=== PATIENT | male | born 1980 | race Caucasian/White ===

== ENCOUNTER 2023-04-19 16:14 | Inpatient (IN) | payer OTHER, SELFPAY ==
--- NOTE | ~2023-04-19 | CT_ITS ---
EXAMINATION: CT HEAD WITHOUT CONTRAST CLINICAL INFORMATION: Dizziness. Vertigo. COMPARISON: CT head from 09/01/2010. TECHNIQUE: Contiguous axial imaging was performed from the skull base to vertex without intravenous administration of contrast. This CT examination was performed using dose optimization techniques as appropriate, variously including the following: *Automated exposure control. *Adjustment of mA and/or kV according to patient size (this includes techniques or standardized protocols for targeted exams where dose is matched to indication/reason for exam; i.e. extremities or head). *Use of iterative reconstruction technique. DLP: 731 mGy-cm FINDINGS: There is no evidence of acute intracranial hemorrhage or edematous territorial infarction. There is a small lacunar infarct within the anterior left thalamus that is new compared to 2009 but otherwise age indeterminate. No additional loss of loya-white matter differentiation. There is no abnormal attenuation within the brain parenchyma. The ventricles are normal in morphology and size. No evidence for obstructive hydrocephalus. No abnormal mass effect or midline shift. No extra-axial fluid collections. No acute soft tissue or osseous abnormalities. Mild mucosal thickening of the paranasal sinuses. The mastoid air cells and middle ear cavities are clear. Mild degenerative arthropathy of the temporomandibular joints. CT/CT head/brain wo IV con IMPRESSION: 1. No evidence of acute intracranial hemorrhage or edematous territorial infarction. 2. There is a small lacunar infarct within the anterior left thalamus that is new compared to 2010 but otherwise age indeterminate.
[2023-04-19 16:25] VITALS: BP 140/80; BP 140/99; PULSE 121; PULSE 81; RESP 16; TEMP 36.8; O2SAT 98; BMI 22.3
[2023-04-19 17:01] LABS: Appearance Urine Clear; Color Urine Dark Yellow; Glucose Urine UA Negative (Negative); Leukocyte Esterase Urine Negative (Negative); Nitrite Urine Negative (Negative); PH 5.5 (5.0-9.0); Specific Gravity - Urine >= 1.030 (1.005-1.025); UMIC TRIGGER UACC YES; Urine Blood Negative (Negative); Urine Ketones 40 mg/dL (Negative); Urine Protein 100 (2+) mg/dL (Neg-Trace)
[2023-04-19 17:03] LABS: Bacteria Urine None Seen (None Seen); RBC Urine 0-2 /HPF (0-2); Squamous Epithelial Cell Urine 0-2 /HPF (0-2); UACC Culture Trigger YES
[2023-04-19 17:09] LABS: MANUAL DIFF FLAG NO
--- NOTE | 2023-04-19 17:10 | MHC.CARE ---
Seen by [facility] in community, no section 12 bed search for inpatient level of care in process.
[2023-04-19 17:13] LABS: Basophils Absolute Auto 0.1 X10*3/uL (0.0-0.2); Basophils Percent Auto 0.9 % (0-2); Eosinophils Percent Auto 0.1 % (0-4); Hematocrit 41.6 % (42.0-52.0); Hemoglobin 13.8 g/dl (14.0-18.0); Imm Gran Abs Auto 0.03 X10*3/uL (0.00-0.03); Imm Gran Pct Auto 0.4 % (0.0-0.4); Lymphocytes Percent Auto 23.7 % (20-40); Mean Corpuscular HGB Conc 33.2 g/dl (31.0-36.0); Mean Corpuscular Hemoglobin 29.3 pg (27.0-33.0); Mean Corpuscular Volume 88.3 fL (80.0-98.0); Mean Platelet Volume 10.3 fL (9.4-12.4); Monocytes Absolute Auto 0.8 X10*3/uL (0.1-1.2); Monocytes Percent Auto 9.5 % (2-11); Neutrophils Absolute Auto 5.6 x10*3/uL (2.0-8.3); Neutrophils Percent Auto 65.4 % (45-73); Platelet Count 242 X10*3/uL (160-400); Red Blood Count 4.71 X10*6/uL (4.60-5.80); Red Cell Distribution Width 12.9 % (11.0-16.0); White Blood Count 8.5 X10*3/uL (4.8-10.8)
[2023-04-19 17:19] LABS: Amphetamine Screen Urine Not Detected (Not Detect); Barbiturates, Urine Not Detected (Not Detect); Benzodiazepines Screen Urine Not Detected (Not Detect); Cannabinoid Screen Urine POSITIVE (Not Detect); Cocaine Screen Urine Not Detected (Not Detect); Fentanyl, urine Not Detected (Not Detect); Opiate Screen Urine Not Detected (Not Detect); Phencyclidine Screen Urine Not Detected (Not Detect)
[2023-04-19 17:31] LABS: Acetaminophen LAB < 17 mcg/mL (<30); Alanine Aminotransferase 37 U/L (0-40); Albumin Level 4.6 g/dL (3.5-5.0); Alkaline Phosphatase 58 U/L (39-117); Anion Gap 18 (12-20); Aspartate Amino Transferase 61 U/L (5-37); Bilirubin Total 0.7 mg/dL (0.0-1.0); Blood Urea Nitrogen 19 mg/dL (9-16); Calcium 9.8 mg/dL (8.4-10.2); Carbon Dioxide 21 mmol/L (22-29); Chloride 107 mmol/L (96-108); Creatinine Clr Calc Pharmacy 100.7; Estimated Glomerular Filt Rate > 60; Ethanol < 10 mg/dL; Glucose Random 109 mg/dL (60-115); Potassium 4.1 mmol/L (3.3-5.1); Salicylate < 5.0 mg/dL (15-30); Sodium 142 mmol/L (135-145); Total Protein 7.2 g/dL (6.5-8.0)
--- NOTE | 2023-04-19 17:35 | PC.NURSE ---
Anibal came in on a section 12 after family report increased paranoia believing family members are aliens and have been replaced. He has also been losing weight and may be experiencing AH. Pleasant but flat on admission. Will answer short questions with a yes on no but not engaging more then that at this time. Denies any health concerns or home medications.
--- NOTE | 2023-04-19 17:48 | ED_ITS ---
HPI - General Adult General Chief complaint: Psychiatric Symptoms Stated complaint: sectioned by CPD, stating fam members are aliens Time Seen by Provider: 04/19/23 16:21 Source: patient, RN notes reviewed and old records reviewed Mode of arrival: ambulatory Limitations: no limitations History of Present Illness HPI narrative: 42-year-old male with past medical history significant for schizoaffective disorder presents for evaluation of ?my family wants me evaluated. ? Patient reports he is not currently on any medications at all. He reports he was diagnosed with schizoaffective disorder in 2007, approximately 15 years ago. Patient reports that he has been ?sharing pollens and descriptors online which my family is concerned about. ? He did not go into any further specifics but reports that is why he was sent here and a Section 12 for evaluation He offers no complaints He is not suicidal. He states that he does use marijuana but ?sometimes it does make me paranoid depending on the strain. ? Related Data Home Medications Medication Instructions Recorded Confirmed No Known Home Meds 04/19/23 04/19/23 Allergies Allergy/AdvReac Type Severity Reaction Status Date / Time No Known Allergies Allergy Unverified 06/06/20 16:56 Review of Systems Constitutional: Constitutional: Reports as per HPI, Denies chills, Denies fatigue, Denies fever(s) and Denies headache(s) ENT: Denies headache(s) Cardiovascular: Cardiovascular: Denies chest pain and Denies dyspnea Respiratory: Respiratory: Denies cough and Denies dyspnea Gastrointestinal: Gastrointestinal: Denies abdominal pain, Denies constipation and Denies vomiting Genitourinary: Genitourinary: Denies difficulty urinating and Denies dysuria Neurologic: Denies headache(s) and Denies focal weakness Endocrine: Endocrine: Denies fatigue PMFSH Social History Social History Alcohol intake: current Alcohol intake frequency: a few times a month Smoked in Last 30 Days: No Use of substances other than those prescribed or required for medical reasons: Yes Substance Use Type: Marijuana Advance Directives: No Advance Directives Information Provided: No Physical Exam ED Vital Signs: Vital Signs - 24 hr 04/19/23 16:25 04/20/23 04:50 04/20/23 07:59 Temperature 98.3 F 98.4 F 97.0 F Pulse Rate 81 84 69 Respiratory Rate 16 16 Blood Pressure 140/99 H 142/87 H 144/88 H Pulse Oximetry 98 98 99 Oxygen Delivery Method Room Air Room Air Room Air BMI result Body Mass Index 22.3 Const General: healthy appearing, comfortable, no acute distress, alert and awake Nutritional Appearance: well nourished Orientation/consciousness: patient oriented x3 HENMT Head: Yes normocephalic and Yes atraumatic Eyes Eyelids: Yes eyelids normal Conjunctivae: conjunctivae normal Sclerae: sclerae normal Corneas: corneas normal Pupils: Equal, round and reactive pupils present EOM: EOMs intact bilaterally Neck Neck: Yes full ROM Resp Effort & Inspection: normal respiratory effort, able to speak in complete sentences and not labored Cardio Rate: regular rate Rhythm: regular rhythm Skin General skin exam: no rashes or lesions noted and elasticity normal Neuro General: patient oriented x3 Cranial nerves: Yes CN's II-XII intact bilaterally, Yes Equal, round and rama ctive pupils present and Yes Bilaterally intact EOM present Cognition (Neuro): normal cognition Extrem Other: Moving all extremities well without any obvious deformities Course Reevaluation(s) Reevaluation #1: Discussed with nursing staff, apparently the patient is a Section 12 bed search from the community. Time: 22:10 Reevaluation #2: There are no issues overnight. Patient continues to be in inpatient bed search. Time: 10:40 Medical Decision Making Medical Decision Making [facility] Narrative: 42-year-old male past medical history significant for schizoaffective disorder presents for evaluation of paranoid delusions. The patient is medically cleared for erythema evaluation. Differential Diagnosis Differential Diagnoses: The differential diagnosis associated with the presentation includes Schizoaffective disorder Paranoia Substance abuse Marijuana abuse Schizophrenia Lab Data [facility] Lab Attestation statement: I reviewed the patient's lab results. No leukocytosis, very mild anemia with a hemoglobin of 13.8 hematocrit 41.6. Normal platelet count of 242 K. sodium and potassium within normal limits, chloride normal at 107. It to just below normal at 21. BUN just above normal at 19 with a creatinine of 0.97. 04/19/23 17:04 04/19/23 17:04 Labs: Lab Results 04/19/23 04/19/23 04/19/23 Range/Units 16:48 16:48 16:49 WBC (4.8-10.8) X10*3/uL RBC (4.60-5.80) X10*6/uL Hgb (14.0-18.0) g/dl Hct (42.0-52.0) % MCV (80.0-98.0) fL MCH (27.0-33.0) pg MCHC (31.0-36.0) g/dl RDW (11.0-16.0) % Plt Count (160-400) X10*3/uL MPV (9.4-12.4) fL Immature Gran % (Auto) (0.0-0.4) % Neut % (Auto) (45-73) % Lymph % (Auto) (20-40) % Dare % (Auto) (2-11) % Eos % (Auto) (0-4) % Baso % (Auto) (0-2) % Lymph # (Auto) (1.2-4.9) X10*3/uL Dare # (Auto) (0.1-1.2) X10*3/uL Eos # (Auto) (0.0-0.4) X10*3/uL Baso # (Auto) (0.0-0.2) X10*3/uL Abs Immat Gran (auto) (0.00-0.03) X10*3/uL Absolute Neuts (auto) (2.0-8.3) x10*3/uL Absolute Nucleated RBC (0.0-0.012) X10*3/uL Nucleated RBC % (auto) (0.0-0.2) /100WBC Sodium (135-145) mmol/L Potassium (3.3-5.1) mmol/L Chloride (96-108) mmol/L Carbon Dioxide (22-29) mmol/L Anion Gap (12-20) BUN (9-16) mg/dL Creatinine (0.5-1.4) mg/dL Estim Creat Clear Calc Estimated GFR Random Glucose (60-115) mg/dL Calcium (8.4-10.2) mg/dL Total Bilirubin (0.0-1.0) mg/dL AST (5-37) U/L ALT (0-40) U/L Alkaline Phosphatase (39-117) U/L Total Protein (6.5-8.0) g/dL Albumin (3.5-5.0) g/dL Urine Color Dark Yellow Cancelled Urine Appearance Clear Cancelled Urine pH 5.5 Cancelled (5.0-9.0) Ur Specific Wood >= 1.030 H Cancelled (1.005-1.025) Urine Protein 100 (2+) H Cancelled (Neg-Trace) mg/dL Urine Glucose (UA) Negative Cancelled (Negative) mg/dL Urine Ketones 40 Cancelled (Negative) mg/dL Urine Blood Negative Cancelled (Negative) Urine Nitrite Negative Cancelled (Negative) Ur Leukocyte Esterase Negative Cancelled (Negative) Urine RBC 0-2 Cancelled (0-2) /HPF Urine WBC 6-10 H Cancelled (0-5) /HPF Urine WBC Clumps Cancelled Ur Squamous Epith Cells 0-2 Cancelled (0-2) /HPF Ur Transition Epith Cell Cancelled Ur Renal Epithelial Cell Cancelled Calcium Oxalate Crystal Cancelled Leucine Crystals Cancelled Cystine Crystals Cancelled Tyrosine Crystals Cancelled Other Crystals Cancelled Urine Bacteria None Seen Cancelled (None Seen) Urine Parasites Cancelled Bilirubin Casts Cancelled Epithelial Casts Cancelled Fatty Casts Cancelled Hyaline Casts 3-5 Cancelled (0-2) /LPF Granular Casts Cancelled Waxy Casts Cancelled Broad Casts Cancelled RBC Casts Cancelled WBC Casts Cancelled Other Casts Cancelled Urine Trichomonas Cancelled Urine Yeast Cancelled Salicylates (15-30) mg/dL Urine Opiates Screen Not Detected (Not Detect) Urine Fentanyl Screen Not Detected (Not Detect) Acetaminophen (<30) mcg/mL Ur Barbiturates Screen Not Detected (Not Detect) Ur Phencyclidine Scrn Not Detected (Not Detect) Ur Amphetamines Screen Not Detected (Not Detect) U Benzodiazepines Scrn Not Detected (Not Detect) Urine Cocaine Screen Not Detected (Not Detect) U Marijuana (THC) Screen POSITIVE H (Not Detect) Ethyl Alcohol mg/dL COVID-19 (TASHA) (Negative) COVID-19 Clin Com 04/19/23 04/19/23 04/19/23 Range/Units 17:04 17:04 17:04 WBC 8.5 (4.8-10.8) X10*3/uL RBC 4.71 (4.60-5.80) X10*6/uL Hgb 13.8 L (14.0-18.0) g/dl Hct 41.6 L (42.0-52.0) % MCV 88.3 (80.0-98.0) fL MCH 29.3 (27.0-33.0) pg MCHC 33.2 (31.0-36.0) g/dl RDW 12.9 (11.0-16.0) % Plt Count 242 (160-400) X10*3/uL MPV 10.3 (9.4-12.4) fL Immature Gran % (Auto) 0.4 (0.0-0.4) % Neut % (Auto) 65.4 (45-73) % Lymph % (Auto) 23.7 (20-40) % Dare % (Auto) 9.5 (2-11) % Eos % (Auto) 0.1 (0-4) % Baso % (Auto) 0.9 (0-2) % Lymph # (Auto) 2.0 (1.2-4.9) X10*3/uL Dare # (Auto) 0.8 (0.1-1.2) X10*3/uL Eos # (Auto) 0.0 (0.0-0.4) X10*3/uL Baso # (Auto) 0.1 (0.0-0.2) X10*3/uL Abs Immat Gran (auto) 0.03 (0.00-0.03) X10*3/uL Absolute Neuts (auto) 5.6 (2.0-8.3) x10*3/uL Absolute Nucleated RBC 0.000 (0.0-0.012) X10*3/uL Nucleated RBC % (auto) 0.0 (0.0-0.2) /100WBC Sodium 142 (135-145) mmol/L Potassium 4.1 (3.3-5.1) mmol/L Chloride 107 (96-108) mmol/L Carbon Dioxide 21 L (22-29) mmol/L Anion Gap 18 (12-20) BUN 19 H (9-16) mg/dL Creatinine 0.97 (0.5-1.4) mg/dL Estim Creat Clear Calc 100.7 Estimated GFR > 60 Random Glucose 109 (60-115) mg/dL Calcium 9.8 (8.4-10.2) mg/dL Total Bilirubin 0.7 (0.0-1.0) mg/dL AST 61 H (5-37) U/L ALT 37 (0-40) U/L Alkaline Phosphatase 58 (39-117) U/L Total Protein 7.2 (6.5-8.0) g/dL Albumin 4.6 (3.5-5.0) g/dL Urine Color Urine Appearance Urine pH (5.0-9.0) Ur Specific Wood (1.005-1.025) Urine Protein (Neg-Trace) mg/dL Urine Glucose (UA) (Negative) mg/dL Urine Ketones (Negative) mg/dL Urine Blood (Negative) Urine Nitrite (Negative) Ur Leukocyte Esterase (Negative) Urine RBC (0-2) /HPF Urine WBC (0-5) /HPF Urine WBC Clumps Ur Squamous Epith Cells (0-2) /HPF Ur Transition Epith Cell Ur Renal Epithelial Cell Calcium Oxalate Crystal Leucine Crystals Cystine Crystals Tyrosine Crystals Other Crystals Urine Bacteria (None Seen) Urine Parasites Bilirubin Casts Epithelial Casts Fatty Casts Hyaline Casts (0-2) /LPF Granular Casts Waxy Casts Broad Casts RBC Casts WBC Casts Other Casts Urine Trichomonas Urine Yeast Salicylates < 5.0 L (15-30) mg/dL Urine Opiates Screen (Not Detect) Urine Fentanyl Screen (Not Detect) Acetaminophen < 17 (<30) mcg/mL Ur Barbiturates Screen (Not Detect) Ur Phencyclidine Scrn (Not Detect) Ur Amphetamines Screen (Not Detect) U Benzodiazepines Scrn (Not Detect) Urine Cocaine Screen (Not Detect) U Marijuana (THC) Screen (Not Detect) Ethyl Alcohol < 10 mg/dL COVID-19 (TASHA) (Negative) COVID-19 Clin Com 04/19/23 Range/Units 20:39 WBC (4.8-10.8) X10*3/uL RBC (4.60-5.80) X10*6/uL Hgb (14.0-18.0) g/dl Hct (42.0-52.0) % MCV (80.0-98.0) fL MCH (27.0-33.0) pg MCHC (31.0-36.0) g/dl RDW (11.0-16.0) % Plt Count (160-400) X10*3/uL MPV (9.4-12.4) fL Immature Gran % (Auto) (0.0-0.4) % Neut % (Auto) (45-73) % Lymph % (Auto) (20-40) % Dare % (Auto) (2-11) % Eos % (Auto) (0-4) % Baso % (Auto) (0-2) % Lymph # (Auto) (1.2-4.9) X10*3/uL Dare # (Auto) (0.1-1.2) X10*3/uL Eos # (Auto) (0.0-0.4) X10*3/uL Baso # (Auto) (0.0-0.2) X10*3/uL Abs Immat Gran (auto) (0.00-0.03) X10*3/uL Absolute Neuts (auto) (2.0-8.3) x10*3/uL Absolute Nucleated RBC (0.0-0.012) X10*3/uL Nucleated RBC % (auto) (0.0-0.2) /100WBC Sodium (135-145) mmol/L Potassium (3.3-5.1) mmol/L Chloride (96-108) mmol/L Carbon Dioxide (22-29) mmol/L Anion Gap (12-20) BUN (9-16) mg/dL Creatinine (0.5-1.4) mg/dL Estim Creat Clear Calc Estimated GFR Random Glucose (60-115) mg/dL Calcium (8.4-10.2) mg/dL Total Bilirubin (0.0-1.0) mg/dL AST (5-37) U/L ALT (0-40) U/L Alkaline Phosphatase (39-117) U/L Total Protein (6.5-8.0) g/dL Albumin (3.5-5.0) g/dL Urine Color Urine Appearance Urine pH (5.0-9.0) Ur Specific Wood (1.005-1.025) Urine Protein (Neg-Trace) mg/dL Urine Glucose (UA) (Negative) mg/dL Urine Ketones (Negative) mg/dL Urine Blood (Negative) Urine Nitrite (Negative) Ur Leukocyte Esterase (Negative) Urine RBC (0-2) /HPF Urine WBC (0-5) /HPF Urine WBC Clumps Ur Squamous Epith Cells (0-2) /HPF Ur Transition Epith Cell Ur Renal Epithelial Cell Calcium Oxalate Crystal Leucine Crystals Cystine Crystals Tyrosine Crystals Other Crystals Urine Bacteria (None Seen) Urine Parasites Bilirubin Casts Epithelial Casts Fatty Casts Hyaline Casts (0-2) /LPF Granular Casts Waxy Casts Broad Casts RBC Casts WBC Casts Other Casts Urine Trichomonas Urine Yeast Salicylates (15-30) mg/dL Urine Opiates Screen (Not Detect) Urine Fentanyl Screen (Not Detect) Acetaminophen (<30) mcg/mL Ur Barbiturates Screen (Not Detect) Ur Phencyclidine Scrn (Not Detect) Ur Amphetamines Screen (Not Detect) U Benzodiazepines Scrn (Not Detect) Urine Cocaine Screen (Not Detect) U Marijuana (THC) Screen (Not Detect) Ethyl Alcohol mg/dL COVID-19 (TASHA) Negative (Negative) COVID-19 Clin Com See Note Discharge Plan Discharge Clinical Impression: Paranoia Patient Disposition: Still a Patient Prescriptions: No Action No Known Home Meds Interventions: [place]-Suicide Risk Severity Scale Last Done: 04/20/23 05:39
[2023-04-19 21:03] LABS: COVID-19 Test Negative (Negative); IDNOW Serial# BCCEAD1C
--- NOTE | 2023-04-19 22:33 | MHC.CARE ---
Tw conducted an [facility] bed search for this patient. No beds available, bed search is exhausted
[2023-04-20 04:50] VITALS: BP 142/87; PULSE 84; RESP 16; TEMP 36.9; O2SAT 98
--- NOTE | 2023-04-20 06:17 | PC.NURSE ---
Patient slept through the night, no distress observed/reported, behavior non concerning follow direction appropriately, no psychosis or paranoia observed, mood depressed affect flat, coherent, spoke with and mother who is on her her way from [place] see him, patient is currently not on any medication, VSS, labs completed/resulted, disposition per [facility]D is Section 12 inpatient bed search, will continue to monitor.
[2023-04-20 07:59] VITALS: BP 144/88; PULSE 69; TEMP 36.1; O2SAT 99
--- NOTE | 2023-04-20 14:43 | PC.NURSE ---
Anibal has been observed pacing on the unit this shift and verbalizes he is wanting to D/C stating who are these people holding me here. I'm alert and oriented I want to leave . Anibal's came to visit and he signed an WILLIE so information could be shared with her. 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 She reprots he has been struggling for awhile but that he has always been able to bounce back but hasn't this time. Anibal has been observed pacing and did eat 100% of his lunch. No medications ordered or requested. Staff will continue to monitor.
--- NOTE | 2023-04-21 01:12 | PC.ADMIT ---
A , white, aged 42 years was admitted [facility] as a section 12-B at 200 following referral from [facility] mobile crisis and [facility]. Pt has a couple prior inpatient psychiatric admissions. [facility] assessment reports IPLOC in 2007, pt reports a previous admission at in 2008 or 2009. Pt was brought to [facility] by [facility] on [facility]19 following an assessment in pt's home. 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 Family indicated pt had begun to act strangely and express intrusive thoughts. Pt's reported that due to his presentation, refusal of treatment had considered a restraining order. Per [facility] assessment, pt had expressed the belief that his sisters were aliens an that voices were telling him to stab them. Pt reports poor sleep, waking 2 or more times per night. Pt is reported to have a poor diet and is walking excessively. Pt reports weight loss over two years and decreased appetite. Pt was positive on [facility] for marijuana. Pt's reports increased marijuana use that correspond with symptoms. Pt when confronted with this offered to quit marijuana. Pt's family expressed concern about odd, bizarre postings on FaceBook by pt. 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 Pt reported remembering discharging from on Seroquel, saying he didn't like how it made him feel. Pt reported stopping Seroquel soon after discharge and only taking it because you have to take your meds to discharge. Pt reported a vague histoery of trauma and said he believed he had PTSD and felt his previous diagnosis of schizophrenia was wrong. Pt was pleasant and cooperative during admission. Pt denies SI/HI, AVH. Pt says can be safe on unit and seek help if needed. Pt has no medical issues at this time. Pt is interested in being lined up with providers but says not interested in medications. Pt has no home medications. Pt says would like to discharge TJ. [id number] done, admission orders obtained. Safety tool and initial treatment done.
[2023-04-21 09:11] LABS: Estimated Average Glucose 105 mg/dL; Hemoglobin A1c % 5.3 %
[2023-04-21 09:12] VITALS: BP 134/65; PULSE 87; RESP 18; TEMP 36.6; O2SAT 98
[2023-04-21 09:16] LABS: Cholesterol 186 mg/dL; HDL Cholesterol 64 mg/dL; LDL Cholesterol Calculated 106 mg/dl; Triglycerides 81 mg/dL
--- NOTE | 2023-04-21 15:53 | P.HPPS_ITS ---
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 Pt has a hx of admit to [facility] in Aug 2010 with dick steinberg-feeling there was evil in the home, he was in a different universe with paranoia and messages to kill his sister. Cannabis was also a factor at this time. Pt reports, I just want to be happy, I would like to understand my vices , identified as cannabis, sugar and pornography. Reports hx of increase in paranoia when smoking cannabis with fear of tasks such as answering the phone. States he is unsure what happened to bring him into the hospital for this admission, but states when he does not smoke the re are no symptoms. He believes he felt cornered yesterday with the limited options given to him. States people in his life have been attempting to reach out to him, but he has had an ongoing struggle. States parents are here from [place], work has offered him time off and he is looking for added help. Past Psychiatric History: IP: 2009- [facility]-paranoia, feeling he needed to kill his sister, feeling evil in the home, feeling he was in a different universe. OP: No current providers, hx of Jainism therapy, hx of therapy with [facility] Trials: Seroquel- unsure if he is interested in medications. Medical Evaluation Reviewed: Yes [facility] Medical History (Updated 04/21/23 @ 16:49 by Claudine Padron APRN) Cannabis use disorder Narrative: Weight loss Change in GI Patterns Syncope/Vertigo Family History: Bipolar Disorder Schizophrenia Unsure of suicide attempts, but I would not doubt it. Social History: Born at [facility] Describes a good childhood. One of 7 children- Ed-oldest, mentor, strongest connection Jessica-free spirit Jenniffer-she struggles like I do Olga-OK- a twin Monet- a twin, at age 1.5 Michael- works and has a family, does not hear from him Degree in nursing. Works for [employer] since 2000. to Lisette. One son, Leandro, age 8. Substance History: History Currently, cannabis, sugar, pornography Trauma History: Age 19, one instance Diagnostics Vital Signs (24Hr): Vital Signs - 24 hr 04/21/23 09:12 Temperature 97.8 F Pulse Rate 87 Respiratory Rate 18 Blood Pressure 134/65 Pulse Oximetry 98 Oxygen Delivery Method Room Air BMI result Body Mass Index 22.3 Labs 04/19/23 17:04 04/19/23 17:04 Labs: Laboratory Results - last 48 hr 04/19/23 04/19/23 04/19/23 16:48 16:48 16:49 WBC RBC Hgb Hct MCV MCH MCHC RDW Plt Count MPV Immature Gran % (Auto) Neut % (Auto) Lymph % (Auto) [place] % (Auto) Eos % (Auto) Baso % (Auto) Lymph # (Auto) [place] # (Auto) Eos # (Auto) Baso # (Auto) Abs Immat Gran (auto) Absolute Neuts (auto) Absolute Nucleated RBC Nucleated RBC % (auto) Sodium Potassium Chloride Carbon Dioxide Anion Gap BUN Creatinine Estim Creat Clear Calc Estimated GFR Random Glucose Estimat Average Glucose Hemoglobin A1c % Calcium Total Bilirubin AST ALT Alkaline Phosphatase Total Protein Albumin Triglycerides Cholesterol LDL Cholesterol, Calc HDL Cholesterol Urine Color Dark Yellow Cancelled Urine Appearance Clear Cancelled Urine pH 5.5 Cancelled Ur Specific [place] >= 1.030 H Cancelled Urine Protein 100 (2+) H Cancelled Urine Glucose (UA) Negative Cancelled Urine Ketones 40 Cancelled Urine Blood Negative Cancelled Urine Nitrite Negative Cancelled Ur Leukocyte Esterase Negative Cancelled Urine RBC 0-2 Cancelled Urine WBC 6-10 H Cancelled Urine WBC Clumps Cancelled Ur Squamous Epith Cells 0-2 Cancelled Ur Transition Epith Cell Cancelled Ur Renal Epithelial Cell Cancelled Calcium Oxalate Crystal Cancelled Leucine Crystals Cancelled Cystine Crystals Cancelled Tyrosine Crystals Cancelled Other Crystals Cancelled Urine Bacteria None Seen Cancelled Urine Parasites Cancelled Bilirubin Casts Cancelled Epithelial Casts Cancelled Fatty Casts Cancelled Hyaline Casts 3-5 Cancelled Granular Casts Cancelled Waxy Casts Cancelled Broad Casts Cancelled RBC Casts Cancelled WBC Casts Cancelled Other Casts Cancelled Urine Trichomonas Cancelled Urine Yeast Cancelled Salicylates Urine Opiates Screen Not Detected Urine Fentanyl Screen Not Detected Acetaminophen Ur Barbiturates Screen Not Detected Ur Phencyclidine Scrn Not Detected Ur Amphetamines Screen Not Detected U Benzodiazepines Scrn Not Detected Urine Cocaine Screen Not Detected U Marijuana (THC) Screen POSITIVE H Ethyl Alcohol COVID-19 (TASHA) COVID-19 Clin Com 04/19/23 04/19/23 04/19/23 17:04 17:04 17:04 WBC 8.5 RBC 4.71 Hgb 13.8 L Hct 41.6 L MCV 88.3 MCH 29.3 MCHC 33.2 RDW 12.9 Plt Count 242 MPV 10.3 Immature Gran % (Auto) 0.4 Neut % (Auto) 65.4 Lymph % (Auto) 23.7 [place] % (Auto) 9.5 Eos % (Auto) 0.1 Baso % (Auto) 0.9 Lymph # (Auto) 2.0 [place] # (Auto) 0.8 Eos # (Auto) 0.0 Baso # (Auto) 0.1 Abs Immat Gran (auto) 0.03 Absolute Neuts (auto) 5.6 Absolute Nucleated RBC 0.000 Nucleated RBC % (auto) 0.0 Sodium 142 Potassium 4.1 Chloride 107 Carbon Dioxide 21 L Anion Gap 18 BUN 19 H Creatinine 0.97 Estim Creat Clear Calc 100.7 Estimated GFR > 60 Random Glucose 109 Estimat Average Glucose Hemoglobin A1c % Calcium 9.8 Total Bilirubin 0.7 AST 61 H ALT 37 Alkaline Phosphatase 58 Total Protein 7.2 Albumin 4.6 Triglycerides Cholesterol LDL Cholesterol, Calc HDL Cholesterol Urine Color Urine Appearance Urine pH Ur Specific [place] Urine Protein Urine Glucose (UA) Urine Ketones Urine Blood Urine Nitrite Ur Leukocyte Esterase Urine RBC Urine WBC Urine WBC Clumps Ur Squamous Epith Cells Ur Transition Epith Cell Ur Renal Epithelial Cell Calcium Oxalate Crystal Leucine Crystals Cystine Crystals Tyrosine Crystals Other Crystals Urine Bacteria Urine Parasites Bilirubin Casts Epithelial Casts Fatty Casts Hyaline Casts Granular Casts Waxy Casts Broad Casts RBC Casts WBC Casts Other Casts Urine Trichomonas Urine Yeast Salicylates < 5.0 L Urine Opiates Screen Urine Fentanyl Screen Acetaminophen < 17 Ur Barbiturates Screen Ur Phencyclidine Scrn Ur Amphetamines Screen U Benzodiazepines Scrn Urine Cocaine Screen U Marijuana (THC) Screen Ethyl Alcohol < 10 COVID-19 (TASHA) COVID-19 Clin Com 04/19/23 04/21/23 04/21/23 20:39 08:05 08:05 WBC RBC Hgb Hct MCV MCH MCHC RDW Plt Count MPV Immature Gran % (Auto) Neut % (Auto) Lymph % (Auto) [place] % (Auto) Eos % (Auto) Baso % (Auto) Lymph # (Auto) [place] # (Auto) Eos # (Auto) Baso # (Auto) Abs Immat Gran (auto) Absolute Neuts (auto) Absolute Nucleated RBC Nucleated RBC % (auto) Sodium Potassium Chloride Carbon Dioxide Anion Gap BUN Creatinine Estim Creat Clear Calc Estimated GFR Random Glucose Estimat Average Glucose 105 Hemoglobin A1c % 5.3 Calcium Total Bilirubin AST ALT Alkaline Phosphatase Total Protein Albumin Triglycerides 81 Cholesterol 186 LDL Cholesterol, Calc 106 HDL Cholesterol 64 Urine Color Urine Appearance Urine pH Ur Specific [place] Urine Protein Urine Glucose (UA) Urine Ketones Urine Blood Urine Nitrite Ur Leukocyte Esterase Urine RBC Urine WBC Urine WBC Clumps Ur Squamous Epith Cells Ur Transition Epith Cell Ur Renal Epithelial Cell Calcium Oxalate Crystal Leucine Crystals Cystine Crystals Tyrosine Crystals Other Crystals Urine Bacteria Urine Parasites Bilirubin Casts Epithelial Casts Fatty Casts Hyaline Casts Granular Casts Waxy Casts Broad Casts RBC Casts WBC Casts Other Casts Urine Trichomonas Urine Yeast Salicylates Urine Opiates Screen Urine Fentanyl Screen Acetaminophen Ur Barbiturates Screen Ur Phencyclidine Scrn Ur Amphetamines Screen U Benzodiazepines Scrn Urine Cocaine Screen U Marijuana (THC) Screen Ethyl Alcohol COVID-19 (TASHA) Negative COVID-19 Clin Com See Note Meds/Allergies Meds Home Medications Medication Instructions Recorded Confirmed Type No Known Home Meds 04/19/23 04/19/23 History Allergies Allergies Allergy/AdvReac Type Severity Reaction Status Date / Time No Known Allergies Allergy Unverified 06/06/20 16:56 Mental Status Exam Mental Status Exam Patient Appearance: Fatigued Patient Orientation: Person, Place, Time and Situation Level of Consciousness: Alert Patient Behavior: Appropriate, Talkative, Cooperative, Passive, Fatigued, Distractible, Isolative and Poor Eye Contact Mood Description: Depressed Affect Description: Flat Patient Cognition Impaired: No Ability to Follow Directions: Good Speech Pattern: Spontaneous Speech and Soft-Spoken Memory Description: Intact Hallucinations: None Delusions: Not Present Perceptual Disturbances: Depersonalization Thought Process: Distracted, Rumination and Goal Oriented Thought Content: positive for Circumstantial, positive for Perseveration and positive for Suicidal Ideation (denies) Depressive Symptoms: Changes in Appetite, Significant Weight Loss, Feelings of Worthlessness, Hopelessness, Unhappiness, Low Self Esteem, Loss of Energy and Difficulty Concentrating Judgement: Fair Assessment & Plan Assessment & Plan (1) Paranoia: Status: Acute Code(s): F22 - Delusional disorders (2) Cannabis use disorder: Status: Acute Code(s): F12.90 - Cannabis use, unspecified, uncomplicated Plan 42 yo male, to ER via crisis for sx of psychosis. Pt reports he had been using cannabis. Hx of [facility] admit 2009 for psychosis after using cannabis as well. Pt unsure what is the issue, hx of dx of schizoaffective disorder with use of Seroquel 400 mg daily. Plan: B12, Folate, EKG, CAT Head (Vertigo, Dizziness) Collateral Contact Pt identifies issues with cannabis, sugar, pornography-begin treatment planning Aftercare referrals Pt may consider psychopharmacology intervention. Patient educated on: therapeutic strategies Informed Consent: understands Reason for continued inpatient stay Substantial Risk for: rapid decompensation Statement Statement: I have reviewed the history and physical and performed a pertinent examination on my patient. No changes have occurred unless specified. If the History and Physical was not performed prior to admission, the Hospitalist's service will be consulted for completing the admission physical. Time Spent With Patient Time: Total time managing care of this patient today ____ minutes.
[2023-04-21 21:55] VITALS: BP 129/67; PULSE 69; TEMP 36.4
--- NOTE | 2023-04-22 09:00 | ECG_ITS ---
Test Reason : qtc prolongnation Blood Pressure : / mmHG Vent. Rate : 076 BPM Atrial Rate : 076 BPM P-R Int : 124 ms QRS Dur : 094 ms QT Int : 366 ms P-R-T Axes : 069 081 060 degrees QTc Int : 411 ms Normal sinus rhythm cannot exclude old Septal infarct , age undetermined ; could be related to body habitus and lead placement Borderline ECG No previous ECGs available Referred By: Claudine Padron Electronically Signed By:IVETH CHANG
[2023-04-22 09:27] VITALS: BP 174/98; PULSE 84; RESP 18; TEMP 36.7; O2SAT 99
[2023-04-22 09:51] LABS: Thyroid Stimulating Hormone 1.56 uIU/mL (0.32-4.0)
[2023-04-22 10:06] LABS: Folate 12.3 ng/mL (> or = 4.0); Vitamin B12 379 pg/mL (200-900)
[2023-04-22 13:48] VITALS: BMI 20.5
--- NOTE | 2023-04-22 16:39 | HO.PSYCHPN ---
Subjective Subjective Date of Service: 04/22/23 Reason For Visit: psychosis Subjective Notes: Section 12B (expires 04/23.) Healthcare Proxy: No Guardianship: No Medical Problems Affecting Mental Status: No Interim History: Section 12B expires 04/23. Pt is not committable. He has cleared from a questionable substance induced psychosis. Discussed with pt that he is welcomed to sign a CV, continue treatment, have ongoing med eval and we will continue to work with the presenting issues. Pt would like to discharge to parents/family and attend IOP and OP care. Discussed hx of IP admit in 2009 with some similiar sx. Discussed that cannabis is poorly tolerated by his system. He was encouraged not to continue to utilize it. Discussed hx of patients with severe adverse responses to cannabis. Pt will re-start Seroquel prn. Medication Compliance: Yes Side effects from medications: No Attending Groups: Intermittent Review of Systems Acute medical concerns: No Medical Review of Systems: unchanged Mental Status Exam Mental Status Exam Patient Appearance: Fatigued Patient Orientation: Person, Place, Time and Situation Level of Consciousness: Alert Patient Behavior: Appropriate, Talkative, Cooperative, Passive, Fatigued, Distractible, Isolative and Poor Eye Contact Mood Description: Depressed Affect Description: Flat Patient Cognition Impaired: No Ability to Follow Directions: Good Speech Pattern: Spontaneous Speech and Soft-Spoken Memory Description: Intact Hallucinations: None Delusions: Not Present Perceptual Disturbances: Depersonalization Thought Process: Distracted, Rumination and Goal Oriented Thought Content: positive for Circumstantial, positive for Perseveration and positive for Suicidal Ideation (denies) Depressive Symptoms: Changes in Appetite, Significant Weight Loss, Feelings of Worthlessness, Hopelessness, Unhappiness, Low Self Esteem, Loss of Energy and Difficulty Concentrating Judgement: Fair Diagnostics Vital Signs (24Hr): Vital Signs - 24 hr 04/21/23 21:55 04/22/23 09:27 Temperature 97.6 F 98.0 F Pulse Rate 69 84 Respiratory Rate 18 Blood Pressure 129/67 174/98 H Pulse Oximetry 99 Oxygen Delivery Method Room Air BMI result Body Mass Index 20.5 Labs 04/19/23 17:04 04/19/23 17:04 Labs: Laboratory Results - last 48 hr 04/21/23 04/21/23 04/22/23 08:05 08:05 08:32 Estimat Average Glucose 105 Hemoglobin A1c % 5.3 Triglycerides 81 Cholesterol 186 LDL Cholesterol, Calc 106 HDL Cholesterol 64 Vitamin B12 379 Folate 12.3 TSH 04/22/23 08:32 Estimat Average Glucose Hemoglobin A1c % Triglycerides Cholesterol LDL Cholesterol, Calc HDL Cholesterol Vitamin B12 Folate TSH 1.56 Imaging Radiology Impressions: ITS Impressions Head CT 04/21/23 20:37 IMPRESSION: 1. No evidence of acute intracranial hemorrhage or edematous territorial infarction. 2. There is a small lacunar infarct within the anterior left thalamus that is new compared to 2010 but otherwise age indeterminate. Medications Medications Current Medications Acetaminophen (Acetaminophen 325 Mg Tablet) 650 mg PO Q6H PRN PRN Reason: Headache/Pain Mild Scale (1-3) Al Hydroxide/Mg Hydroxide (Magnesium Hydrox/Alum Hydrox 30 Ml Oral.Susp) 30 ml PO Q6H PRN PRN Reason: Heartburn/Nausea Hydroxyzine HCl (Hydroxyzine Hcl 25 Mg Tablet) 25 mg PO Q6H PRN PRN Reason: Anxiety Magnesium Hydroxide (Milk Of Magnesia 30 Ml Oral.Susp) 30 ml PO DAILY PRN PRN Reason: Constipation Nicotine (Nicotine 21 Mg Patch.Td24) 21 mg TRANSDERMA DAILY PRN PRN Reason: smoking cessation Nicotine Polacrilex (Nicotine Polacrilex 2 Mg Gum) 4 mg BUCCAL Q2H PRN PRN Reason: Nicotine Cravings Olanzapine (Olanzapine 5 Mg Tablet) 5 mg PO TID PRN PRN Reason: agitation Trazodone HCl (Trazodone Hcl 50 Mg Tablet) 50 mg PO BEDTIME MRX1 PRN PRN Reason: Insomnia Allergies Allergies Allergy/AdvReac Type Severity Reaction Status Date / Time No Known Allergies Allergy Unverified 06/06/20 16:56 Assessment & Plan Assessment & Plan (1) Paranoia: Status: Acute Code(s): F22 - Delusional disorders (2) Cannabis use disorder: Status: Acute Code(s): F12.90 - Cannabis use, unspecified, uncomplicated Plan 42 yo male, to ER via crisis for sx of psychosis. Pt reports he had been using cannabis. Hx of C admit 2009 for psychosis after using cannabis as well. Pt unsure what is the issue, hx of dx of schizoaffective disorder with use of Seroquel 400 mg daily. Plan: B12, Folate, EKG, CAT Head (Vertigo, Dizziness) Collateral Contact Pt identifies issues with cannabis, sugar, pornography-begin treatment planning Aftercare referrals Pt may consider psychopharmacology intervention. 04/22/23 Pt will discharge from Section 12B 04/23. He declines to remain in pt. Seroquel 50 mg bid prn Pt will attend IOP, OP, and asks to go to [facility] as well. Patient educated on: therapeutic strategies Informed Consent: understands Reason for continued inpatient stay Substantial Risk for: rapid decompensation Time Spent With Patient Time: Total time managing care of this patient today ____ minutes.
[2023-04-22 17:44] VITALS: BP 167/74; PULSE 72; RESP 16; TEMP 36.1; O2SAT 99
[2023-04-23 08:30] VITALS: BP 140/85; PULSE 85; RESP 18; TEMP 35.8; O2SAT 98
[2023-04-23 10:17] LABS: Adenovirus F 40/41 Not Detected (Not Detect.); Astrovirus Not Detected (Not Detect.); Campylobacter Not Detected (Not Detect.); Cryptosporidium Not Detected (Not Detect.); Cyclospora cayetanensis Not Detected (Not Detect.); E. coli EAEC Not Detected (Not Detect.); E. coli EPEC Not Detected (Not Detect.); E. coli ETEC Not Detected (Not Detect.); E. coli STEC Not Detected (Not Detect.); Entamoeba histolytica Not Detected (Not Detect.); Giardia lamblia Not Detected (Not Detect.); Norovirus GI/GII Not Detected (Not Detect.); Plesiomonas shigelloides Not Detected (Not Detect.); Rotavirus A Not Detected (Not Detect.); Salmonella Not Detected (Not Detect.); Sapovirus Not Detected (Not Detect.); Shigella sp./EIEC Not Detected (Not Detect.); Vibrio Not Detected (Not Detect.); Vibrio Cholerae Not Detected (Not Detect.); Yersinia enterocolitica Not Detected (Not Detect.)
--- NOTE | 2023-04-23 15:58 | P.PNPSI_ITS ---
Subjective Subjective Date of Service: 04/23/23 Reason For Visit: psychosis Subjective Notes: Conditional Voluntary and Section 12B Healthcare Proxy: No Guardianship: No Medical Problems Affecting Mental Status: No Interim History: Pt signed CV. He had decided to discharge and continue treatment in IOP and OP venues, however, his housing plans fell through, and father refusing his requests. Pt discussed some of the dynamics, complex and longstanding. Sister Olga is a psychiatric nurse. Pt believes she instigated these refusals. Expressed frustration. Discussed some conflicts with as well and his perceptions. Discussed medications. Will consider a trial of meds to assess contribution to sx/stress mgt. Attending Groups: No Review of Systems Acute medical concerns: No Medical Review of Systems: unchanged Mental Status Exam Mental Status Exam Patient Appearance: Fatigued Patient Orientation: Person, Place, Time and Situation Level of Consciousness: Alert Patient Behavior: Appropriate, Talkative, Cooperative, Passive, Fatigued, Distractible, Isolative and Poor Eye Contact Mood Description: Depressed Affect Description: Flat Patient Cognition Impaired: No Ability to Follow Directions: Good Speech Pattern: Spontaneous Speech and Soft-Spoken Memory Description: Intact Hallucinations: None Delusions: Not Present Perceptual Disturbances: Depersonalization Thought Process: Distracted, Rumination and Goal Oriented Thought Content: positive for Circumstantial, positive for Perseveration and positive for Suicidal Ideation (denies) Depressive Symptoms: Changes in Appetite, Significant Weight Loss, Feelings of Worthlessness, Hopelessness, Unhappiness, Low Self Esteem, Loss of Energy and Difficulty Concentrating Judgement: Fair Diagnostics Vital Signs (24Hr): Vital Signs - 24 hr 04/22/23 17:44 04/23/23 08:30 Temperature 97.0 F 96.5 F L Pulse Rate 72 85 Respiratory Rate 16 18 Blood Pressure 167/74 H 140/85 H Pulse Oximetry 99 98 Oxygen Delivery Method Room Air Room Air BMI result Body Mass Index 20.5 Labs 04/19/23 17:04 04/19/23 17:04 Labs: Laboratory Results - last 48 hr 04/22/23 04/22/23 04/22/23 08:32 08:32 18:37 Vitamin B12 379 Folate 12.3 TSH 1.56 Stl C. cayetanensis PCR Not Detected Stool Rotavirus A PCR Not Detected Stl Adenov F 40/41 PCR Not Detected Stool Astrovirus (PCR) Not Detected Stool Campylobacter PCR Not Detected Stool Cryptosporidium PCR Not Detected Stl Sh Tox Pr E STEC PCR Not Detected Stool E coli O157 PCR Not applicable Stl Enterotoxigenic E PCR Not Detected Stool EPEC (PCR) Not Detected Stool EAEC (PCR) Not Detected Stl E. histolytica PCR Not Detected Stool Giardia Lamblia PCR Not Detected Stl P. shigelloides PCR Not Detected Stool Salmonella PCR Not Detected Stool Sapovirus (PCR) Not Detected Stl Shigella/EIEC PCR Not Detected St Y.enterocolitica PCR Not Detected Stool Vibrio (PCR) Not Detected Stl Vibrio cholerae PCR Not Detected Stl Norovirus GI/GII PCR Not Detected Imaging Radiology Impressions: ITS Impressions Head CT 04/21/23 20:37 IMPRESSION: 1. No evidence of acute intracranial hemorrhage or edematous territorial infarction. 2. There is a small lacunar infarct within the anterior left thalamus that is new compared to 2010 but otherwise age indeterminate. Medications Medications Current Medications Acetaminophen (Acetaminophen 325 Mg Tablet) 650 mg PO Q6H PRN PRN Reason: Headache/Pain Mild Scale (1-3) Al Hydroxide/Mg Hydroxide (Magnesium Hydrox/Alum Hydrox 30 Ml Oral.Susp) 30 ml PO Q6H PRN PRN Reason: Heartburn/Nausea Hydroxyzine HCl (Hydroxyzine Hcl 25 Mg Tablet) 25 mg PO Q6H PRN PRN Reason: Anxiety Magnesium Hydroxide (Milk Of Magnesia 30 Ml Oral.Susp) 30 ml PO DAILY PRN PRN Reason: Constipation Nicotine (Nicotine 21 Mg Patch.Td24) 21 mg TRANSDERMA DAILY PRN PRN Reason: smoking cessation Nicotine Polacrilex (Nicotine Polacrilex 2 Mg Gum) 4 mg BUCCAL Q2H PRN PRN Reason: Nicotine Cravings Olanzapine (Olanzapine 5 Mg Tablet) 5 mg PO TID PRN PRN Reason: agitation Quetiapine Fumarate (Quetiapine Fumarate 50 Mg Tablet) 50 mg PO BID PRN PRN Reason: anxiety Trazodone HCl (Trazodone Hcl 50 Mg Tablet) 50 mg PO BEDTIME MRX1 PRN PRN Reason: Insomnia Allergies Allergies Allergy/AdvReac Type Severity Reaction Status Date / Time No Known Allergies Allergy Unverified 06/06/20 16:56 Assessment & Plan Assessment & Plan (1) Paranoia: Status: Acute Code(s): F22 - Delusional disorders (2) Cannabis use disorder: Status: Acute Code(s): F12.90 - Cannabis use, unspecified, uncomplicated Plan 42 yo male, to ER via crisis for sx of psychosis. Pt reports he had been using cannabis. Hx of [facility] admit 2009 for psychosis after using cannabis as well. Pt unsure what is the issue, hx of dx of schizoaffective disorder with use of Seroquel 400 mg daily. Plan: B12, Folate, EKG, CAT Head (Vertigo, Dizziness) Collateral Contact Pt identifies issues with cannabis, sugar, pornography-begin treatment planning Aftercare referrals Pt may consider psychopharmacology intervention. 04/22/23 Pt will discharge from Section 12B 04/23. He declines to remain in pt. Seroquel 50 mg bid prn Pt will attend IOP, OP, and asks to go to [facility] as well. 04/23/23 Pt signed in on a CV Family refuses to have him at home Discussed medications, he will consider. Patient educated on: medication risk/benefits and therapeutic strategies Informed Consent: understands Reason for continued inpatient stay Substantial Risk for: rapid decompensation Time Spent With Patient Time: Total time managing care of this patient today ____ minutes.
[2023-04-23 18:00] VITALS: BP 148/80; PULSE 80; RESP 18
[2023-04-24 09:51] VITALS: BP 129/75; PULSE 80; RESP 18; TEMP 36.6; O2SAT 100
[2023-04-24 15:55] VITALS: BP 152/82; PULSE 83; TEMP 36.8
--- NOTE | 2023-04-24 18:54 | P.PNPSI_ITS ---
Subjective Subjective Date of Service: 04/24/23 Reason For Visit: psychosis Subjective Notes: Conditional Voluntary Healthcare Proxy: No Guardianship: No Medical Problems Affecting Mental Status: No Interim History: Pt seen, discussed with team. Pt continues to decline any medication intervention. Asked if he would consider a 6 week trial with re-eval of his sx, ability to cope, problem solving and efficacy. He has declined. He is upset with family for changing course on him and not welcoming him home, especially sister, a psychology department chair whom he states overstepped her boundaries and gave an opinion to family that was without assessment of his needs. Visable on the unit, listending to headphones, pacing. Family has been visiting today. Attending Groups: Intermittent Review of Systems Acute medical concerns: No Medical Review of Systems: unchanged Mental Status Exam Mental Status Exam Patient Appearance: Fatigued Patient Orientation: Person, Place, Time and Situation Level of Consciousness: Alert Patient Behavior: Appropriate, Talkative, Cooperative, Passive, Fatigued, Distractible, Isolative and Poor Eye Contact Mood Description: Depressed Affect Description: Flat Patient Cognition Impaired: No Ability to Follow Directions: Good Speech Pattern: Spontaneous Speech and Soft-Spoken Memory Description: Intact Hallucinations: None Delusions: Not Present Perceptual Disturbances: Depersonalization Thought Process: Distracted, Rumination and Goal Oriented Thought Content: positive for Circumstantial, positive for Perseveration and positive for Suicidal Ideation (denies) Depressive Symptoms: Changes in Appetite, Significant Weight Loss, Feelings of Worthlessness, Hopelessness, Unhappiness, Low Self Esteem, Loss of Energy and Difficulty Concentrating Judgement: Fair Diagnostics Vital Signs (24Hr): Vital Signs - 24 hr 04/24/23 09:51 04/24/23 15:55 Temperature 97.8 F 98.3 F Pulse Rate 80 83 Respiratory Rate 18 Blood Pressure 129/75 152/82 H Pulse Oximetry 100 Oxygen Delivery Method Room Air BMI result Body Mass Index 20.5 Labs 04/19/23 17:04 04/19/23 17:04 Labs: Laboratory Results - last 48 hr 04/22/23 18:37 Stl C. cayetanensis PCR Not Detected Stool Rotavirus A PCR Not Detected Stl Adenov F 40/41 PCR Not Detected Stool Astrovirus (PCR) Not Detected Stool Campylobacter PCR Not Detected Stool Cryptosporidium PCR Not Detected Stl Sh Tox Pr E STEC PCR Not Detected Stool E coli O157 PCR Not applicable Stl Enterotoxigenic E PCR Not Detected Stool EPEC (PCR) Not Detected Stool EAEC (PCR) Not Detected Stl E. histolytica PCR Not Detected Stool Giardia Lamblia PCR Not Detected Stl P. shigelloides PCR Not Detected Stool Salmonella PCR Not Detected Stool Sapovirus (PCR) Not Detected Stl Shigella/EIEC PCR Not Detected St Y.enterocolitica PCR Not Detected Stool Vibrio (PCR) Not Detected Stl Vibrio cholerae PCR Not Detected Stl Norovirus GI/GII PCR Not Detected Imaging Radiology Impressions: ITS Impressions Head CT 04/21/23 20:37 IMPRESSION: 1. No evidence of acute intracranial hemorrhage or edematous territorial infarction. 2. There is a small lacunar infarct within the anterior left thalamus that is new compared to 2010 but otherwise age indeterminate. Medications Medications Current Medications Acetaminophen (Acetaminophen 325 Mg Tablet) 650 mg PO Q6H PRN PRN Reason: Headache/Pain Mild Scale (1-3) Al Hydroxide/Mg Hydroxide (Magnesium Hydrox/Alum Hydrox 30 Ml Oral.Susp) 30 ml PO Q6H PRN PRN Reason: Heartburn/Nausea Hydroxyzine HCl (Hydroxyzine Hcl 25 Mg Tablet) 25 mg PO Q6H PRN PRN Reason: Anxiety Magnesium Hydroxide (Milk Of Magnesia 30 Ml Oral.Susp) 30 ml PO DAILY PRN PRN Reason: Constipation Nicotine (Nicotine 21 Mg Patch.Td24) 21 mg TRANSDERMA DAILY PRN PRN Reason: smoking cessation Nicotine Polacrilex (Nicotine Polacrilex 2 Mg Gum) 4 mg BUCCAL Q2H PRN PRN Reason: Nicotine Cravings Olanzapine (Olanzapine 5 Mg Tablet) 5 mg PO TID PRN PRN Reason: agitation Quetiapine Fumarate (Quetiapine Fumarate 50 Mg Tablet) 50 mg PO BID PRN PRN Reason: anxiety Trazodone HCl (Trazodone Hcl 50 Mg Tablet) 50 mg PO BEDTIME MRX1 PRN PRN Reason: Insomnia Allergies Allergies Allergy/AdvReac Type Severity Reaction Status Date / Time No Known Allergies Allergy Unverified 06/06/20 16:56 Assessment & Plan Assessment & Plan (1) Paranoia: Status: Acute Code(s): F22 - Delusional disorders (2) Cannabis use disorder: Status: Acute Code(s): F12.90 - Cannabis use, unspecified, uncomplicated Plan 42 yo male, to ER via crisis for sx of psychosis. Pt reports he had been using cannabis. H[place] [facility] [place] for psychosis after using cannabis as well. Pt unsure what is the issue, hx of dx of schizoaffective disorder with use of Seroquel 400 mg daily. Plan: B12, Folate, EKG, CAT Head (Vertigo, Dizziness) Collateral Contact Pt identifies issues with cannabis, sugar, pornography-begin treatment planning Aftercare referrals Pt may consider psychopharmacology intervention. 04/22/23 Pt will discharge from [facility] 04/23. He declines to remain in pt. Seroquel 50 mg bid prn Pt will attend IOP, OP, and asks to go to [facility] as well. 04/23/23 Pt signed in on a CV Family refuses to have him at home Discussed medications, he will consider. 04/24/23 Encourage participation in treatment. Patient educated on: medication risk/benefits Informed Consent: understands Reason for continued inpatient stay Substantial Risk for: rapid decompensation Time Spent With Patient Time: Total time managing care of this patient today ____ minutes.
[2023-04-25 08:04] VITALS: BP 135/86; PULSE 104; RESP 16; TEMP 36.1; O2SAT 97
--- NOTE | 2023-04-25 16:51 | P.PNPSI_ITS ---
Subjective Subjective Date of Service: 04/25/23 Reason For Visit: psychosis Subjective Notes: Conditional Voluntary Healthcare Proxy: No Guardianship: No Medical Problems Affecting Mental Status: No Interim History: Pt reviewed with team. Records/reports were reviewed. Parents visited. Mother reports she has been attempting to share with pt how important she feels it is for compliance with medicine and uses her health as an example. Pt continues resistant-he is angry with his sister for convincing the family he is not capable without meds, but grateful his parents are a strong support. He continues to decline psychopharmacology intervention. Attending Groups: No Review of Systems Acute medical concerns: No Medical Review of Systems: unchanged Mental Status Exam Mental Status Exam Patient Appearance: Fatigued Patient Orientation: Person, Place, Time and Situation Level of Consciousness: Alert Patient Behavior: Appropriate, Talkative, Cooperative, Passive, Fatigued, Distractible, Isolative and Poor Eye Contact Mood Description: Depressed Affect Description: Flat Patient Cognition Impaired: No Ability to Follow Directions: Good Speech Pattern: Spontaneous Speech and Soft-Spoken Memory Description: Intact Hallucinations: None Delusions: Not Present Perceptual Disturbances: Depersonalization Thought Process: Distracted, Rumination and Goal Oriented Thought Content: positive for Circumstantial, positive for Perseveration and positive for Suicidal Ideation (denies) Depressive Symptoms: Changes in Appetite, Significant Weight Loss, Feelings of Worthlessness, Hopelessness, Unhappiness, Low Self Esteem, Loss of Energy and Difficulty Concentrating Judgement: Fair Diagnostics Vital Signs (24Hr): Vital Signs - 24 hr 04/25/23 08:04 Temperature 97 F Pulse Rate 104 H Respiratory Rate 16 Blood Pressure 135/86 Pulse Oximetry 97 Oxygen Delivery Method Room Air BMI result Body Mass Index 20.5 Labs 04/19/23 17:04 04/19/23 17:04 Imaging Radiology Impressions: ITS Impressions Head CT 04/21/23 20:37 IMPRESSION: 1. No evidence of acute intracranial hemorrhage or edematous territorial infarction. 2. There is a small lacunar infarct within the anterior left thalamus that is new compared to 2009 but otherwise age indeterminate. Medications Medications Current Medications Acetaminophen (Acetaminophen 325 Mg Tablet) 650 mg PO Q6H PRN PRN Reason: Headache/Pain Mild Scale (1-3) Al Hydroxide/Mg Hydroxide (Magnesium Hydrox/Alum Hydrox 30 Ml Oral.Susp) 30 ml PO Q6H PRN PRN Reason: Heartburn/Nausea Hydroxyzine HCl (Hydroxyzine Hcl 25 Mg Tablet) 25 mg PO Q6H PRN PRN Reason: Anxiety Magnesium Hydroxide (Milk Of Magnesia 30 Ml Oral.Susp) 30 ml PO DAILY PRN PRN Reason: Constipation Nicotine (Nicotine 21 Mg Patch.Td24) 21 mg TRANSDERMA DAILY PRN PRN Reason: smoking cessation Nicotine Polacrilex (Nicotine Polacrilex 2 Mg Gum) 4 mg BUCCAL Q2H PRN PRN Reason: Nicotine Cravings Olanzapine (Olanzapine 5 Mg Tablet) 5 mg PO TID PRN PRN Reason: agitation Quetiapine Fumarate (Quetiapine Fumarate 50 Mg Tablet) 50 mg PO BID PRN PRN Reason: anxiety Trazodone HCl (Trazodone Hcl 50 Mg Tablet) 50 mg PO BEDTIME MRX1 PRN PRN Reason: Insomnia Allergies Allergies Allergy/AdvReac Type Severity Reaction Status Date / Time No Known Allergies Allergy Unverified 06/06/20 16:56 Assessment & Plan Assessment & Plan (1) Paranoia: Status: Acute Code(s): F22 - Delusional disorders (2) Cannabis use disorder: Status: Acute Code(s): F12.90 - Cannabis use, unspecified, uncomplicated Plan 42 yo male, to ER via crisis for sx of psychosis. Pt reports he had been using cannabis. Hx of [facility] [place] admit 2009 for psychosis after using cannabis as well. Pt unsure what is the issue, hx of dx of schizoaffective disorder with use of Seroquel 400 mg daily. Plan: B12, Folate, EKG, CAT Head (Vertigo, Dizziness) Collateral Contact Pt identifies issues with cannabis, sugar, pornography-begin treatment planning Aftercare referrals Pt may consider psychopharmacology intervention. 04/22/23 Pt will discharge from [facility] 04/23. He declines to remain in pt. Seroquel 50 mg bid prn Pt will attend IOP, OP, and asks to go to [facility] as well. 04/23/23 Pt signed in on a CV Family refuses to have him at home Discussed medications, he will consider. 04/24/23 Encourage participation in treatment. 04/25/23 Encourage participation in treatment Informed Consent: understands Reason for continued inpatient stay Substantial Risk for: inability to function Time Spent With Patient Time: Total time managing care of this patient today ____ minutes.
[2023-04-25 18:00] VITALS: BP 148/78; PULSE 88; RESP 18; TEMP 36.6; O2SAT 97
[2023-04-26 08:00] VITALS: BP 170/77; PULSE 102; RESP 16; TEMP 36.6; O2SAT 98
--- NOTE | 2023-04-26 17:27 | PM.PSYDC ---
DS: Providers Provider Date of Service: 04/26/23 Date of admission: 04/20/23 19:03 Date of discharge: 04/26/23 Primary care physician: Nedra Physician Admitting clinician: Claudine Padron Attending physician on admission: Kai Ruffin Attending physician on discharge: Kai Ruffin Discharging clinician: Claudine Padron DS: Diagnosis Discharge Diagnosis (1) Paranoia: Status: Resolved (2) Cannabis use disorder: Status: Acute DS: Medications Discharge Medications Home Medications: Previous Rx's Medication Instructions Recorded quetiapine 50 mg tablet 50 mg PO BID PRN anxiety #60 tabs 04/22/23 Mental Status Exam Mental Status Exam Patient Appearance: Fatigued Patient Orientation: Person, Place, Time and Situation Level of Consciousness: Alert Patient Behavior: Appropriate, Talkative, Cooperative, Passive, Fatigued, Distractible, Isolative and Poor Eye Contact Mood Description: Depressed Affect Description: Flat Patient Cognition Impaired: No Ability to Follow Directions: Good Speech Pattern: Spontaneous Speech and Soft-Spoken Memory Description: Intact Hallucinations: None Delusions: Not Present Perceptual Disturbances: Depersonalization Thought Process: Distracted, Rumination and Goal Oriented Thought Content: positive for Circumstantial, positive for Perseveration and positive for Suicidal Ideation (denies) Depressive Symptoms: Changes in Appetite, Significant Weight Loss, Feelings of Worthlessness, Hopelessness, Unhappiness, Low Self Esteem, Loss of Energy and Difficulty Concentrating Judgement: Fair Data Data Completed and Pending Completed studies during hospitalization [Text1]: 04/19/23 04/19/23 04/19/23 16:48 17:04 17:04 Sodium 142 Potassium 4.1 Chloride 107 Carbon Dioxide 21 L Anion Gap 18 BUN 19 H Creatinine 0.97 Estim Creat Clear Calc 100.7 Estimated GFR > 60 Random Glucose 109 Estimat Average Glucose Hemoglobin A1c % Calcium 9.8 Total Bilirubin 0.7 AST 61 H ALT 37 Alkaline Phosphatase 58 Total Protein 7.2 Albumin 4.6 Triglycerides Cholesterol LDL Cholesterol, Calc HDL Cholesterol Vitamin B12 Folate TSH Urine Color Cancelled Urine Appearance Cancelled Urine pH Cancelled Ur Specific [place] Cancelled Urine Protein Cancelled Urine Glucose (UA) Cancelled Urine Ketones Cancelled Urine Blood Cancelled Urine Nitrite Cancelled Ur Leukocyte Esterase Cancelled Urine RBC Cancelled Urine WBC Cancelled Urine WBC Clumps Cancelled Ur Squamous Epith Cells Cancelled Ur Transition Epith Cell Cancelled Ur Renal Epithelial Cell Cancelled Calcium Oxalate Crystal Cancelled Leucine Crystals Cancelled Cystine Crystals Cancelled Tyrosine Crystals Cancelled Other Crystals Cancelled Urine Bacteria Cancelled Urine Parasites Cancelled Bilirubin Casts Cancelled Epithelial Casts Cancelled Fatty Casts Cancelled Hyaline Casts Cancelled Granular Casts Cancelled Waxy Casts Cancelled Broad Casts Cancelled RBC Casts Cancelled WBC Casts Cancelled Other Casts Cancelled Urine Trichomonas Cancelled Urine Yeast Cancelled Stl C. cayetanensis PCR Stool Rotavirus A PCR Stl Adenov F PCR Stool Astrovirus (PCR) Stool Campylobacter PCR Stool Cryptosporidium PCR Stl Sh Tox Pr E STEC PCR Stool E coli O157 PCR Stl Enterotoxigenic E PCR Stool EPEC (PCR) Stool EAEC (PCR) Stl E. histolytica PCR Stool Giardia Lamblia PCR Stl P. shigelloides PCR Stool Salmonella PCR Stool Sapovirus (PCR) Stl Shigella/EIEC PCR St Y.enterocolitica PCR Stool Vibrio (PCR) Stl Vibrio cholerae PCR Stl Norovirus GI/GII PCR Salicylates < 5.0 L Acetaminophen < 17 Ethyl Alcohol < 10 COVID-19 ([facility]) COVID-19 Clin Com 04/19/23 04/21/23 04/21/23 20:39 08:05 08:05 Sodium Potassium Chloride Carbon Dioxide Anion Gap BUN Creatinine Estim Creat Clear Calc Estimated GFR Random Glucose Estimat Average Glucose 105 Hemoglobin A1c % 5.3 Calcium Total Bilirubin AST ALT Alkaline Phosphatase Total Protein Albumin Triglycerides 81 Cholesterol 186 LDL Cholesterol, Calc 106 HDL Cholesterol 64 Vitamin B12 Folate TSH Urine Color Urine Appearance Urine pH Ur Specific [place] Urine Protein Urine Glucose (UA) Urine Ketones Urine Blood Urine Nitrite Ur Leukocyte Esterase Urine RBC Urine WBC Urine WBC Clumps Ur Squamous Epith Cells Ur Transition Epith Cell Ur Renal Epithelial Cell Calcium Oxalate Crystal Leucine Crystals Cystine Crystals Tyrosine Crystals Other Crystals Urine Bacteria Urine Parasites Bilirubin Casts Epithelial Casts Fatty Casts Hyaline Casts Granular Casts Waxy Casts Broad Casts RBC Casts WBC Casts Other Casts Urine Trichomonas Urine Yeast Stl C. cayetanensis PCR Stool Rotavirus A PCR Stl Adenov F PCR Stool Astrovirus (PCR) Stool Campylobacter PCR Stool Cryptosporidium PCR Stl Sh Tox Pr E STEC PCR Stool E coli O157 PCR Stl Enterotoxigenic E PCR Stool EPEC (PCR) Stool EAEC (PCR) Stl E. histolytica PCR Stool Giardia Lamblia PCR Stl P. shigelloides PCR Stool Salmonella PCR Stool Sapovirus (PCR) Stl Shigella/EIEC PCR St Y.enterocolitica PCR Stool Vibrio (PCR) Stl Vibrio cholerae PCR Stl Norovirus GI/GII PCR Salicylates Acetaminophen Ethyl Alcohol COVID-19 ([facility]) Negative COVID-19 Clin Com See Note 04/22/23 04/22/23 04/22/23 08:32 08:32 18:37 Sodium Potassium Chloride Carbon Dioxide Anion Gap BUN Creatinine Estim Creat Clear Calc Estimated GFR Random Glucose Estimat Average Glucose Hemoglobin A1c % Calcium Total Bilirubin AST ALT Alkaline Phosphatase Total Protein Albumin Triglycerides Cholesterol LDL Cholesterol, Calc HDL Cholesterol Vitamin B12 379 Folate 12.3 TSH 1.56 Urine Color Urine Appearance Urine pH Ur Specific [place] Urine Protein Urine Glucose (UA) Urine Ketones Urine Blood Urine Nitrite Ur Leukocyte Esterase Urine RBC Urine WBC Urine WBC Clumps Ur Squamous Epith Cells Ur Transition Epith Cell Ur Renal Epithelial Cell Calcium Oxalate Crystal Leucine Crystals Cystine Crystals Tyrosine Crystals Other Crystals Urine Bacteria Urine Parasites Bilirubin Casts Epithelial Casts Fatty Casts Hyaline Casts Granular Casts Waxy Casts Broad Casts RBC Casts WBC Casts Other Casts Urine Trichomonas Urine Yeast Stl C. cayetanensis PCR Not Detected Stool Rotavirus A PCR Not Detected Stl Adenov F 40/41 PCR Not Detected Stool Astrovirus (PCR) Not Detected Stool Campylobacter PCR Not Detected Stool Cryptosporidium PCR Not Detected Stl Sh Tox Pr E STEC PCR Not Detected Stool E coli O157 PCR Not applicable Stl Enterotoxigenic E PCR Not Detected Stool EPEC (PCR) Not Detected Stool EAEC (PCR) Not Detected Stl E. histolytica PCR Not Detected Stool Giardia Lamblia PCR Not Detected Stl P. shigelloides PCR Not Detected Stool Salmonella PCR Not Detected Stool Sapovirus (PCR) Not Detected Stl Shigella/EIEC PCR Not Detected St Y.enterocolitica PCR Not Detected Stool Vibrio (PCR) Not Detected Stl Vibrio cholerae PCR Not Detected Stl Norovirus GI/GII PCR Not Detected Salicylates Acetaminophen Ethyl Alcohol COVID-19 ([facility]) COVID-19 Clin Com 04/19/23 Unknown Urine clean catch - Urine loya top Urine Culture - Final No growth. Imaging Diagnostic Imaging Impressions Head CT 04/21/23 20:37 IMPRESSION: 1. No evidence of acute intracranial hemorrhage or edematous territorial infarction. 2. There is a small lacunar infarct within the anterior left thalamus that is new compared to 2010 but otherwise age indeterminate. DS: Summary Hospital Course Hospital Course: Admission to adult psychiatry with exacerbation of psychosis, possibly substance induced. History of admission in 2009 for similiar symptoms with paranoia and HI to family. Pt was in control but refused treatment during admission. He discussed being angry as he feels his sister, a psychiatric nurse, has interfered with his care and has offered opinions which he finds are not fair to his perspective of what is going on. Describes marital discord which he has not shared with family. Pt was cooperative on the unit, associated with peers, but declined intervention. He refused medications and will consider PHP and out patient services upon discharge. Parents were very supportive and present during admission, as well as pt's . Pt was able to identify cannabis, pornography, and sugar as issues he finds contribute to addictive behaviors and states he plans to work on these in the out patient venue. Time spent discussing smoking cessation with patient: 3 to 10 minutes Status at Discharge Functional status at discharge: independent ambulation Overall status at discharge: patient is not back to baseline Time Spent with Patient Time attestation: Total time managing care of this patient today ____ minutes. Time spent: Greater than 30 minutes Discharge Plan Discharge Anticipated Discharge Date/Time: 04/26/23 14:32 Patient Disposition: Home, Self-Care Discharge Diagnosis: Cannabis Use Disorder Substance Induced Psychosis Referrals: [facility] [[facility]] - 05/10/23 11:00 am (IOP INTAKE. Any questions concerns or need to reschedule contact Eliane at [phone]. Appointment will be in person) Physician,Unknown J [Primary Care Provider] - 1 Week Discharge Medications: No Action oxcarbazepine [Trileptal] 300 mg tablet 300 mg PO BID Qty: 14 0RF Discharge Orders: Discharge Order (Routine); Ordered 04/26/23 Ordered By: Teresa Crum Diet: Advance to usual diet Activity on Discharge: As tolerated Stand Alone Forms: Patient Portal Discharge page, Community Support Care Plan Goals: Mood and Behavioral Stabilization No substance use Health Concerns: Mood and Behavioral Stabilization No substance use Plan of Treatment: Attend scheduled appointments Begin intensive out patient treatment Take medications as needed Attend [facility] as requested. Assessment: Pt interviewed prior to discharge and found to be fully oriented and without SI/HI. Pt has insight and demonstrates good judgment in terms of wanting to pursue treatment. Pt is not in imminent risk of harm to self or others and has a safety plan that includes presenting to the closest ER or calling 911 if feeling unsafe. Pt has been observed closely by nursing and unit staff throughout admission. Pt has not engaged in any behaviors that suggest dangerousness to self or others and has demonstrated appropriate behaviors and impulse control. Discharge Date/Time: 04/26/23 16:27
== END 2023-04-26 16:27 | disposition home or self-care (01) | DRG 897 ==
LOC: HO.ED 22:11 → HO.PM5 04-20 19:16
PROVIDERS: Emergency Medicine; Admitting Provider Psychiatry & Neurology Psychiatry; Emergency Provider Internal Medicine; Visit Provider Clinical Nurse Specialist Psychiatric/Mental Health, Adult
DX: F12.159 Cannabis abuse with psychotic disorder, unspecified (principal); Z20.822 Contact with and (suspected) exposure to COVID-19
CPT/HCPCS: 36415; 70450; 80053; 80061; 80143; 80179; 80307; 81001; 82607; 82746; 83036; 84443; 85025; 87086; 87507; 87635; 93005; 99285

== ENCOUNTER 2023-04-20 19:03 | Outpatient (BNV) | payer OTHER, SELFPAY | END 2023-04-22 09:00 | PROVIDERS: Admitting Provider Psychiatry & Neurology Psychiatry; Emergency Provider Internal Medicine; Visit Provider Internal Medicine | DX: R41.82 Altered mental status, unspecified (principal) | CPT/HCPCS: 93010 ==

== ENCOUNTER → 2023-04-20 19:03 | Outpatient (BNV) | payer OTHER, SELFPAY | PROVIDERS: Admitting Provider Psychiatry & Neurology Psychiatry; Emergency Provider Internal Medicine; Visit Provider Clinical Nurse Specialist Psychiatric/Mental Health, Adult | DX: F22 Delusional disorders (principal); F12.90 Cannabis use, unspecified, uncomplicated | CPT/HCPCS: 90792; 99231; 99232; 99239 ==

== ENCOUNTER → 2023-06-03 10:30 | Outpatient (BNV) | payer OTHER, SELFPAY | PROVIDERS: Visit Provider Clinical Nurse Specialist Psychiatric/Mental Health | DX: F25.9 Schizoaffective disorder, unspecified (principal) | CPT/HCPCS: 99204; 99213 ==

== ENCOUNTER 2023-06-04 14:27 | Outpatient (REF) | payer OTHER, SELFPAY | END 2023-06-04 14:28 | disposition home or self-care (01) | LOC: HO.LNP 14:27 | PROVIDERS: Visit Provider Clinical Nurse Specialist Psychiatric/Mental Health | DX: Z13.89 Encounter for screening for other disorder (principal) ==

== ENCOUNTER → 2023-06-11 14:08 | Outpatient (REF) | payer OTHER, SELFPAY ==
--- NOTE | 2023-06-11 14:26 | ECG_ITS ---
Test Reason : r10 Blood Pressure : / mmHG Vent. Rate : 067 BPM Atrial Rate : 067 BPM P-R Int : 128 ms QRS Dur : 100 ms QT Int : 378 ms P-R-T Axes : 074 081 071 degrees QTc Int : 399 ms Normal sinus rhythm Incomplete right bundle branch block Borderline ECG When compared with ECG of 22-APR-2023 14:09, No significant change was found Referred By: Maricel Stock Electronically Signed By:JENNIFFER MELVIN
== END ==
LOC: HO.CARD 14:08
PROVIDERS: PCP Internal Medicine; Visit Provider Clinical Nurse Specialist Psychiatric/Mental Health
DX: I49.9 Cardiac arrhythmia, unspecified (principal)
CPT/HCPCS: 93005

== ENCOUNTER 2023-06-23 09:45 | Outpatient (RCR) | payer OTHER, SELFPAY ==
--- NOTE | 2023-06-02 14:20 | PC.ADMIT ---
Patient is a 42 year old male who was referred to [facility] by [facility] respite program where he was admitted from 04/27/23-05/02/23 as a step down in treatment from inpatient behavioral health hospitalization where he was admitted from 04/20-04/26/23. Per records Patient has a dx of Schizoaffective d/o and was struggling with mood instability including, agitation, disorganized thinking, delusions, hallucinations, and paranoid thoughts including seeing the devil over his nieces head while at the dinning room table. There was police involvement and patient was sectioned 12'd to the hospital for evaluation and treatment. Please see medical records for more information. 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 Major symptom would be seeing the devil. Happened pretty quick. I was in my house and my sister in law was over and her niece were at the dinning room table and an image of the devil appeared above my niece and I told them to leave . Patient reports he had been smoking synthetic marijuana, some potent stuff at the time. Patient reports he started smoking marijuana again when the pandemic started and his use gradually increased to the point it was getting out of control. I'm learning to control my emotions instead of yelling at people . He reports history of hospitalizations and stated, Back in 2009 having delusions that my sister was not my sister and she was speaking language like [place] they were communicating in [place] and I felt like I was in a different world . He stated he was experiencing AH, telling me the only way out as to hurt my sister . Patient was subsequently hospitalized at that time. I tend to have a harder time in the fall. In 1999 I did a lot of drugs and things started to fall apart at that time, I broke up with my girlfriend . He was subsequently hospitalized at that time as well. Reports history of attending [facility]. He is currently taking FMLA from work to work on Mental Health. He is a registered nurse. He presented with depressed mood and affect. Denied SI, HI, AH, VH, or paranoid thoughts. He reports he is currently depressed with lack of motivation and energy to do things. He has been abstaining from Marijuana, last use 04/19/23. He reports having some cravings. His thoughts are clear and logical. He was discharged from inpatient hospitalization on Seroquel 50 mg BID prn and Respite discharge medications are Melatonin and Sulfa Hydrogerisatum however he is not taking the above mentioned medications. He is thinking about taking medications to help improve sleep as he reports sleeping for 6 hrs a night with multiple awakenings. Patient was given a copy of his safety plan and I reviewed this with him.
--- NOTE | 2023-06-03 09:37 | P.HPPSP_ITS ---
HPI Date of Service: 06/03/23 Chief Complaint: unspecified mood d/o,paranoid schizophrenia Sources of Information: patient interviewed, chart reviewed and crisis/core team assessment reviewed Additional Sources of Information: [facility] comprehensive assessment intake date 04/18/23 HPI Narrative: 42 yo male, hx of schizoaffective disorder referred to PHP as step down from inpatient; he was hospitalized on [facility] m5 04/20/23 through 04/26/23 and discharged to respite. He was treated primarily for psychosis due to cannabis use; pt presented to ER from the community with [facility] crisis team involvement due to an increase in paranoia, intrusive thoughts, auditory perceptual alterations, belief that sisters were aliens and psychotic presenting symptoms. Pt has a hx of admit to [facility] in Aug 2010 with dick steinberg-feeling there was evil in the home, he was in a different universe with paranoia and messages to kill his sister. Cannabis was also a factor at this time. pt referred to php from [facility] respite due to agitation, paranoid ideation,visual hallucinations- seeing his 2 yo niece as possessed by michelle. He was expressing paranoid ideation and feeling that crisis team were out to get him. He was having ideas that sisters were aliens and he was hearing voices to kill them. Today pt is calm, easily engaged; he looks away from TW for most of the interview although makes brief eye contact; His gestures at times appear as if he is younger than stated age. He reports he is not using cannabis and is coming to understand that he is allergic to it. he describes a paradoxical and negative effect from cannabis- paranoia, agitation, hyperactivity, loss of appetite and hallucinations; He is contemplating not using it at all but has some ambivalence; He says I'm a pot head. He denies SI or HI now; He does not want medication despite feeling depressed, low energy, anxiety, not sleeping. He denies auditory or visual hallucinations; he does not verbalize any paranid ideas; TW spoke with patient about CT scan results and plan to send to PCP with request fro neurology follow up; Pt states he was having some intermittent dizziness during the pandemic and describes one episode in the mall when he felt so dizzy he had to lie down on the floor and wait for it to pass. He says he was told it was probably dehydration and di not think much more about it. Past Psychiatric History: IP x 2 : 2009 and 2022 - [facility]-paranoia, feeling he needed to kill his sister, feeling evil in the home, feeling he was in a different universe. psychosis in context of cannabis use respite CHD 2022 multiple crisis evals OP: No current providers, hx of [facility] therapy, hx of therapy with [facility] Trials: Seroquel- unsure if he is interested in medications. ct scan showed lacunar infarct on thalamus - refer to neuro [facility] Medical History (Updated 06/03/23 @ 13:50 by Maricel Stock APRN) Cannabis use disorder Family History: Bipolar Disorder Schizophrenia Unsure of suicide attempts, but I would not doubt it. Social History: Born at [facility] Describes a good childhood. One of 7 children- Ed-oldest, mentor, strongest connection Jessica-free spirit Jenniffer-she struggles like I do Olga-OK- a twin Monet- a twin, at age 1.5 Michael- works and has a family, does not hear from him Degree in nursing. Works for [employer] since 2000. to Lisette. One son, Leandro, age 8. Substance History: daily cannabis smoke since age 16, nitrous oxide in 20s. coca ine, ecstasy age [age]. histroy of binge alcohol Trauma History: Age 19, one instance Diagnostics Imaging Radiology Impressions: Head CT 04/21/23 20:37 IMPRESSION: 1. No evidence of acute intracranial hemorrhage or edematous territorial infarction. 2. There is a small lacunar infarct within the anterior left thalamus that is new compared to 2009 but otherwise age indeterminate. EKG inconclusive Meds/Allergies Meds Home Medications Medication Instructions Recorded Confirmed Type No Known Home Meds 06/02/23 06/02/23 History Allergies Allergies Allergy/AdvReac Type Severity Reaction Status Date / Time No Known Allergies Allergy Unverified 06/06/20 16:56 Mental Status Exam Mental Status Exam Patient Appearance: Fatigued and Disheveled Patient Orientation: Person, Place, Time and Situation Level of Consciousness: Awake Patient Behavior: Appropriate, Cooperative and Poor Eye Contact Mood Description: Calm and Blunted Affect Description: Blunted Ability to Follow Directions: Fair Speech Pattern: Clear Hallucinations: None Delusions: Not Present Thought Process: Intact and Goal Oriented Thought Content: positive for Intact Judgement: Fair Assessment & Plan Assessment & Plan (1) Schizoaffective disorder: Status: Acute Code(s): F25.9 - Schizoaffective disorder, unspecified (2) Cannabis use disorder: Status: Acute Code(s): F12.90 - Cannabis use, unspecified, uncomplicated Plan assessment: 42 yo maried male with histroy of psychosis and paranoia in context of cannabis use admitted to [facility] as step down from [facility]. plan admit to [facility] groups per protocol ekg -repeat send copy of CT scan to PCP and request neuro referral substance abuse education discussed depakote fro mood regulation with patient - he defers med at this time Patient educated on: diagnosis, medication risk/benefits, substance abuse, therapeutic strategies and medical condition Informed Consent: further education needed Reason for continued partial hosp. stay Substantial Risk for: harm to self, harm to others, inability to function, rapid decompensation and med/psych decompensation Certification I certify that partial hospital treatment is medically necessary due to the symptoms and problems resulting from the patient's mental illness and the failure to treat the patient at the partial hospital level of care would likely result in the patient requiring inpatient psychiatric care which could not be prevented at a less intensive level of care. Time Spent With Patient Time: Total time managing care of this patient today ___60_ minutes.
--- NOTE | 2023-06-03 13:33 | PC.NURSE ---
Maricel Stock reviewed patient CT scan results completed on the inpatient unit on 04/21/23. A copy of the results faxed to patient's PCP Dr Vlad Mckinney MD to review and f/u with his patient regarding a referral with neurologist. [facility] hospital secretary spoke to Tyrese and confirmed that patient's PCP's office received the results and typed a message to the provider.
--- NOTE | 2023-06-03 16:10 | HO.PHP ---
The clients case was reviewed and opened in treatment team.
[2023-06-07 09:18] LABS: Amphetamine Screen Urine Not Detected (Not Detect); Barbiturates, Urine Not Detected (Not Detect); Benzodiazepines Screen Urine Not Detected (Not Detect); Cannabinoid Screen Urine Not Detected (Not Detect); Cocaine Screen Urine Not Detected (Not Detect); Fentanyl, urine Not Detected (Not Detect); Opiate Screen Urine Not Detected (Not Detect); Phencyclidine Screen Urine Not Detected (Not Detect)
--- NOTE | 2023-06-07 11:03 | HO.PHPPROGNO ---
Subjective Subjective Date of Service: 06/07/23 Reason For Visit: unspecified mood d/o,paranoid schizophrenia Interim History: Anibal is seen in follow-up at his request. He states that when he was on the inpatient unit here he did not want to be on any medications but continues to struggle with some mood fluctuations, mild hypomania, irritability, anger which fortunately he has been able to control and been able to take measures before anything happens. He was interested in a mood stabilizer, may be Depakote and we discussed options and settled on Trileptal to be started at 150 mg and to be increased to 600 mg gradually. He may elect to stay on the 300 mg and give it some time and if it is adequate to stay with that dose. Side effects discussed. Importance of electrolyte rich food on a daily basis discussed. Review of Systems Review of Systems Yes all other systems are reviewed and are negative Mental Status Exam Mental Status Exam Patient Appearance: Fatigued and Disheveled Patient Orientation: Person, Place, Time and Situation Level of Consciousness: Awake Patient Behavior: Appropriate, Cooperative and Poor Eye Contact Mood Description: Calm and Blunted Affect Description: Blunted Ability to Follow Directions: Fair Speech Pattern: Clear Hallucinations: None Delusions: Not Present Thought Process: Intact and Goal Oriented Thought Content: positive for Intact Judgement: Fair Diagnostics Labs Labs: Laboratory Results - last 48 hr 06/04/23 09:00 Urine Opiates Screen Not Detected Urine Fentanyl Screen Not Detected Ur Barbiturates Screen Not Detected Ur Phencyclidine Scrn Not Detected Ur Amphetamines Screen Not Detected U Benzodiazepines Scrn Not Detected Urine Cocaine Screen Not Detected U Marijuana (THC) Screen Not Detected Assessment & Plan Assessment & Plan (1) Schizoaffective disorder: Status: Acute Code(s): F25.9 - Schizoaffective disorder, unspecified Plan Initiate Trileptal at 150 mg to be increased to 300-600 mg. He will be seen by 1 of was prior to ending the program Patient educated on: medication risk/benefits Certification I certify that partial hospital treatment is medically necessary due to the symptoms and problems resulting from the patient's mental illness and the failure to treat the patient at the partial hospital level of care would likely result in the patient requiring inpatient psychiatric care which could not be prevented at a less intensive level of care. Total time managing care of this patient today ____ minutes. Discharge Plan Discharge Attending provider: Kyle,Yrn Medications: New oxcarbazepine [Trileptal] 300 mg tablet 300 mg PO BID Qty: 14 0RF
--- NOTE | 2023-06-10 10:50 | PC.NURSE ---
Patient reports he had a f/u appointment with his PCP regarding CT scan results. He stated they are referring him to neurology and for a cardiac ultrasound.
--- NOTE | 2023-06-15 11:59 | HO.PHPPROGNO ---
Subjective Subjective Date of Service: 06/15/23 Reason For Visit: unspecified mood d/o,paranoid schizophrenia Interim History: This is a follow-up visit with Armando. He has been taking the Trileptal at 300 mg and denies any side effects. He sleeping better. He feels that his moods have been improving. He will proceed with the increase to 600 mg and then 900 mg. He continues to being gauged in the partial hospital meetings and group sessions. He has been finding it to be quite helpful. He does have an appointment with his prescriber on 06/25 Medication Compliance: Yes Review of Systems Review of Systems Yes all other systems are reviewed and are negative Mental Status Exam Mental Status Exam Patient Appearance: Fatigued and Disheveled Patient Orientation: Person, Place, Time and Situation Level of Consciousness: Awake Patient Behavior: Appropriate, Cooperative and Poor Eye Contact Mood Description: Calm and Blunted Affect Description: Blunted Ability to Follow Directions: Fair Speech Pattern: Clear Hallucinations: None Delusions: Not Present Thought Process: Intact and Goal Oriented Thought Content: positive for Intact Judgement: Fair Assessment & Plan Assessment & Plan (1) Schizoaffective disorder: Status: Acute Code(s): F25.9 - Schizoaffective disorder, unspecified Plan Increase Trileptal to 900 mg. A 1 month supply was sent to his pharmacy. Continue PHP Patient educated on: diagnosis and medication risk/benefits Certification I certify that partial hospital treatment is medically necessary due to the symptoms and problems resulting from the patient's mental illness and the failure to treat the patient at the partial hospital level of care would likely result in the patient requiring inpatient psychiatric care which could not be prevented at a less intensive level of care. Total time managing care of this patient today ____ minutes. Discharge Plan Discharge Attending provider: Yrn Kyle Medications: Changed oxcarbazepine [Trileptal] 300 mg tablet 900 mg PO BEDTIME Qty: 90 0RF
--- NOTE | 2023-06-16 08:17 | PC.NURSE ---
Dr Tang Reviewed EKG results completed on 06/11/23. No new orders.
--- NOTE | 2023-06-22 11:22 | HO.PHPPROGNO ---
Subjective Subjective Date of Service: 06/22/23 Reason For Visit: unspecified mood d/o,paranoid schizophrenia Interim History: Anibal is seen for follow-up. He will be ending the program tomorrow. He still is not picked up Trileptal because of some glitch on the prescription being sent to the pharmacy but he will do so and initiate at 150 mg to be increased to 600 mg on which he will sit and see how that goes because previously he had done well on that dose. He talked about his outpatient connections and plans. He talked about the specific areas that the program was both intense yet very helpful to him. He states that he feels ?a lot more stable?. Review of Systems Review of Systems Yes all other systems are reviewed and are negative Mental Status Exam Mental Status Exam Patient Appearance: Fatigued and Disheveled Patient Orientation: Person, Place, Time and Situation Level of Consciousness: Awake Patient Behavior: Appropriate, Cooperative and Poor Eye Contact Mood Description: Calm and Blunted Affect Description: Blunted Ability to Follow Directions: Fair Speech Pattern: Clear Hallucinations: None Delusions: Not Present Thought Process: Intact and Goal Oriented Thought Content: positive for Intact Judgement: Fair Assessment & Plan Assessment & Plan (1) Schizoaffective disorder: Status: Acute Code(s): F25.9 - Schizoaffective disorder, unspecified Plan He will and partial hospital tomorrow and will connect with his outpatient providers. He will start Trileptal tonight and will proceed to 600 mg. A 1 month supply at 900 mg was previously sent to his pharmacy Patient educated on: medication risk/benefits Certification I certify that partial hospital treatment is medically necessary due to the symptoms and problems resulting from the patient's mental illness and the failure to treat the patient at the partial hospital level of care would likely result in the patient requiring inpatient psychiatric care which could not be prevented at a less intensive level of care. Total time managing care of this patient today ____ minutes. Discharge Plan Discharge Attending provider: Yrn Kyle Medications: Changed oxcarbazepine [Trileptal] 300 mg tablet 900 mg PO BEDTIME Qty: 90 0RF Stand Alone Forms: Patient Portal Discharge page
== END 2023-06-23 23:59 | disposition home or self-care (01) ==
LOC: HO.PHPA 09:45
PROVIDERS: Clinical Nurse Specialist Psychiatric/Mental Health; Visit Provider Psychiatry & Neurology Psychiatry
DX: F25.9 Schizoaffective disorder, unspecified (principal); F12.90 Cannabis use, unspecified, uncomplicated; Z79.899 Other long term (current) drug therapy
CPT/HCPCS: 80307; 90791; 90853